=== PATIENT | male | born 1950 | race Caucasian/White ===

== ENCOUNTER 2020-09-24 09:56 | Emergency (ER) | payer BC, MEDICARE ==
[2020-09-24] MEDS ORDERED: cefTRIAXone 1 GM Vial IM ONE (10:19)
--- NOTE | 2020-09-24 10:19 | EDM.PDOC ---
ED HPI GENERAL MEDICAL PROBLEM - General Chief Complaint: ENT Problem Stated Complaint: SWOLLEN JAW Time Seen by Provider: 09/24/20 10:14 Source of Information: Reports: Patient History Limitations: Reports: No Limitations - History of Present Illness INITIAL COMMENTS - FREE TEXT/NARRATIVE: pt arrived with facial swelling on the left. He has a painful tooth on the left lower jaw area. Onset: Other ( started last nite. ) Duration: Hour(s): Location: Reports: Face Associated Symptoms: Reports: No Other Symptoms - Related Data Allergies Allergy/AdvReac Type Severity Reaction Status Date / Time No Known Allergies Allergy Verified 09/24/20 10:10 Home Meds: Home Meds NK [No Known Home Meds] 09/24/20 [History] Past Medical History Musculoskeletal History: Reports: Fracture - Infectious Disease History Infectious Disease History: Reports: Chicken Pox Social & Family History - Tobacco Use Tobacco Use Status *Q: Never Tobacco User - Caffeine Use Caffeine Use: Reports: Coffee - Recreational Drug Use Recreational Drug Use: Yes ED ROS ENT - Review of Systems Review Of Systems: See Below Constitutional: Reports: No Symptoms HEENT: Reports: Dental Pain Respiratory: Reports: No Symptoms Cardiovascular: Reports: No Symptoms Endocrine: Reports: No Symptoms GI/Abdominal: Reports: No Symptoms : Reports: No Symptoms Musculoskeletal: Reports: No Symptoms Skin: Reports: No Symptoms Neurological: Reports: No Symptoms ED EXAM, ENT - Physical Exam Exam: See Below Text/Narrative:: pt arrived with facial swelling on the left lower jaw area. He has some pain but the pain has not been severe. Exam Limited By: No Limitations General Appearance: Alert, Mild Distress, Other ( alot of swelling on the left lower jaw area. ) Ears: Normal TMs Nose: Normal Inspection Mouth/Throat: Dental Abcess, Dental Pain, Dental Tenderness, Other (pt has sig swelling of the left lower jaw area. ) Head: Atraumatic Neck: Lymphadenopathy (L) Respiratory/Chest: No Respiratory Distress Cardiovascular: Regular Rate, Rhythm Course - Vital Signs Last Recorded V/S: Last Vital Signs Temp 36.1 C 09/24/20 10:14 Pulse 70 09/24/20 10:14 Resp 16 09/24/20 10:14 BP 140/65 09/24/20 10:14 Pulse Ox 98 09/24/20 10:14 - Orders/Labs/Meds Meds: Medications Discontinued Medications Generic Name Dose Route Start Last Admin Trade Name Jerson PRN Reason Stop Dose Admin Ceftriaxone Sodium 1 gm 09/24/20 10:19 Rocephin IM 09/24/20 10:20 ONETIME ONE Lidocaine HCl 5 ml 09/24/20 10:20 Xylocaine-Mpf 1% INJECT 09/24/20 10:21 ONETIME ONE - Re-Assessments/Exams Free Text/Narrative Re-Assessment/Exam: 09/24/20 10:28 pt was given rocephen 1 gm im Departure - Departure Time of Disposition: 10:21 Disposition: Home, Self-Care 01 Condition: Fair Clinical Impression: Dental infection - Discharge Information Referrals: PCP,None [Primary Care Provider] - Forms: ED Department Discharge Care Plan Goals: irrigate mouth with warm water, motrin and tylenol for pain, clindomycin 300mg tid for 10 days, use probiotic and yogurt while on the antibiotic, set up appt with your own dentist. Rtc if the swelling is getting worse. Sepsis Event Note (ED) - Focused Exam Vital Signs: Vital Signs Temp Pulse Resp BP Pulse Ox 09/24/20 10:14 36.1 C 70 16 140/65 98 09/24/20 10:10 36.1 C 70 16 140/65 98
== END 2020-09-24 10:46 | disposition home or self-care (01) ==
LOC: JP.ED 09:56
DX: K04.7 Periapical abscess without sinus (principal)
CPT/HCPCS: 96372; 99282; J0696; J2001